=== PATIENT | female | born 1975 | race Two or more races ===

== ENCOUNTER 2024-08-11 13:29 | Emergency (ER) | payer OTHER ==
[~2024-08-11] VITALS: Ht 167.6 cm; Wt 131.5 kg
[2024-08-11] MEDS ORDERED: GLIPIZIDE XL2.5 MG (14:48)
[2024-08-11] MEDS ORDERED: BENZONATATE 200 MG CAPSULE PO ONE (15:00)
[2024-08-11] MEDS ORDERED: LEVALBUTEROL HCL 1.25 MG/3 ML SOLUTION IH ONE (15:00)
[2024-08-11] MEDS ORDERED: MONTELUKAST SODIUM 10 MG TABLET PO ONE (15:00)
[2024-08-11 17:02] LABS: HEMATOCRIT 43.4 % (36.0-45.00); HEMOGLOBIN 14.8 g/dL (12.0-15.00); MEAN CELL VOLUME 82.5 fL (80.00-100.00); MEAN CORPUSCULAR HEMOGLOBIN 28.1 pg (27.00-32.0); MEAN CORPUSCULAR HGB CONC 34.1 g/dl (32.0-36.0); PLATELET COUNT 201 K/uL (150-450); RED BLOOD COUNT 5.26 M/uL (4.00-6.00)
[2024-08-11] MEDS ORDERED: LEVALBUTEROL HCL 0.63 MG/3 ML SOLUTION IH ONE (17:16)
== END 2024-08-11 17:47 | disposition home or self-care (01) ==
LOC: ER 13:31
PROVIDERS: General Practice
DX: U07.1 COVID-19 (principal); E11.9 Type 2 diabetes mellitus without complications; Z79.84 Long term (current) use of oral hypoglycemic drugs